=== PATIENT | male | born 1985 | race Caucasian/White ===

== ENCOUNTER 2018-08-21 06:31 | Day surgery (SDC) | payer OTHER ==
[~2018-08-21 06:31] MED LIST: CEFAZOLIN 2 GM/50 ML (PMX) 50 ML IVPB; SOD CHLORIDE 0.9% 1,000 ML IV
[2018-08-21] MEDS ORDERED: SEVOFLURANE 15 MIN (07:00)
[2018-08-21] MEDS ORDERED: MIDAZOLAM 1 MG/ML 2 ML INJ (08:08)
[2018-08-21] MEDS ORDERED: FENTAnyl 50 MCG/ML VIAL (08:08)
[2018-08-21] MEDS: POLYMYXIN/BACITRACIN 1L IRRIG (08:36)
[2018-08-21] MEDS: BUPIVACAINE 0.25% (MPF) 30 ML INJ (08:36)
[2018-08-21] MEDS ORDERED: PROPOFOL 20 ML (08:56)
[2018-08-21] MEDS ORDERED: ROCURONIUM 50 MG INJ (08:56)
[2018-08-21] MEDS ORDERED: NEOSTIGMINE 3 MG/3 ML SYRINGE (08:56)
[2018-08-21] MEDS ORDERED: CEFAZOLIN 1 GM INJ (08:56)
[2018-08-21] MEDS ORDERED: LIDOCAINE 2% (SDV) 5 ML INJ (08:56)
[2018-08-21] MEDS ORDERED: GLYCOPYRROLATE 0.4 MG INJ (08:56)
[2018-08-21] MEDS ORDERED: ONDANSETRON 4 MG INJ (09:01)
[2018-08-21] MEDS ORDERED: MEPERIDINE 25 MG INJ IV (09:30)
[2018-08-21] MEDS ORDERED: ONDANSETRON 4 MG INJ IV (09:30)
[2018-08-21] MEDS ORDERED: HYDROCODONE/APAP (5/325) TAB PO (09:30)
[2018-08-21] MEDS ORDERED: METOCLOPRAMIDE 10 MG INJ IV (09:30)
[2018-08-21] MEDS ORDERED: FENTAnyl 50 MCG/ML VIAL IV (09:30)
[2018-08-21] MEDS ORDERED: DIPHENHYDRAMINE 50 MG INJ IV (09:30)
[2018-08-21] MEDS ORDERED: HYDROmorphONE 1 MG/5 ML IV SYRINGE IV ×2 (09:30)
== END 2018-08-21 10:55 | disposition home or self-care (01) ==
LOC: SDS 06:31
DX: K40.30 Unilateral inguinal hernia, with obstruction, without gangrene, not specified as recurrent (principal)
CPT/HCPCS: 49507